=== PATIENT | female | born 1990 | race Caucasian/White ===

== ENCOUNTER 2016-02-15 19:16 | Emergency (ER) | payer MEDICAID ==
--- NOTE | 2016-02-16 02:03 | ER Document Report ---
Doctor's Note Notes: 02/16/16 02:02 I do not see or participate in the care of this patient. She declined to be evaluated
== END 2016-02-16 02:00 | disposition left against medical advice (07) ==
LOC: ER 19:16
DX: Z53.21 Procedure and treatment not carried out due to patient leaving prior to being seen by health care provider (principal)